=== PATIENT | male | born 1955 | race Caucasian/White ===

== ENCOUNTER 2020-12-18 14:20 | Emergency (ER) | payer MEDICARE, SELFPAY ==
--- NOTE | 2020-12-18 14:19 | ECG_ITS ---
APPROVED REPORT Exam: Resting ECG HR:54 bpm ECG Measurements Heart Rate 54 AXES IL 146 P 53 QRSd 90 QRS 18 QT 460 T 75 QTc 436 Conclusion Sinus bradycardia Low voltage QRS Borderline ECG Electronically signed by : Luis Buckner MD 12/20/2020 18:09:29
[2020-12-18 14:20] VITALS: BP 98/70; PULSE 55; RESP 18; O2SAT 98; BMI 29.9
--- NOTE | 2020-12-18 14:52 | [facility].EDGENADL ---
ED Disposition Clinical Impression: Left against medical advice, Symptomatic bradycardia Syncope Qualifiers: Syncope type: unspecified Qualified Code(s): R55 - Syncope and collapse Disposition: Left Against Medical Advice Condition on Discharge: Good Instructions: DI for Seizure Disorder -- Adult, DI for Seizure (Not Epilepsy/Seizure Disorder), DI for Seizure Disorder -- Child Referrals: Provider,Referral, [Primary Care Provider] - - Critical Care Critical Care Time: No Attestation: On 12/18/20, the high probability of a clinically significant, sudden or life threatening deterioration of the following system(s) required my full and direct attention, intervention and personal management. The time I documented below is in addition to time spent performing reported procedures but includes the following listed in this critical care notation. Medical Decision Making - Medical Records Medical records reviewed: Yes: I reviewed the patient's medical records. - Uriah Inquiry Pt receiving controlled substance: No Vital Signs: 12/18/20 14:20 12/18/20 15:18 Temperature 97.6 F Pulse Rate 55 L Pulse Rate [Left Radial] 55 L Respiratory Rate 18 18 Blood Pressure 98/70 L Blood Pressure [Right Arm] 98/70 L Blood Pressure Mean [Right Arm] 79 Blood Pressure Source Automatic Cuff Blood Pressure Source [Right Arm] Automatic Cuff Blood Pressure Position Sitting Blood Pressure Position [Right Arm] Sitting 02 Sat by Pulse Oximetry 98 Oxygen Delivery Method Room Air Room Air - Lab Data Lab Results 12/18/20 14:27: WBC 8.3, RBC 4.72, Hgb 14.7, Hct 44.7, MCV 94.7 H, MCH 31.2, MCHC 32.9, RDW 13.3, Plt Count 281, MPV 7.8, Neut % (Auto) 53.9, Lymph % (Auto) 36.6, [place] % (Auto) 6.6, Eos % (Auto) 2.4, Baso % (Auto) 0.5, Neut # (Auto) 4.5, Lymph # (Auto) 3.0, [place] # (Auto) 0.5, Eos # (Auto) 0.2, Baso # (Auto) 0.0 12/18/20 14:27: D-Dimer 0.47 12/18/20 14:27: Sodium 135 L, Potassium 4.1, Chloride 101, Carbon Dioxide 23, Anion Gap 15.1 H, BUN 19, Creatinine 1.70 H, Estimated Creat Clear 67, Estimated GFR 41 L, Est GFR ( Amer) 49 L, Glucose 117 H, Calcium 8.8, Total Bilirubin 0.5, AST 37, ALT 42, Alkaline Phosphatase 60, Troponin I < 0.01, NT-Pro-B Natriuret Pep 242 H, Total Protein 7.0, Albumin 4.0, Globulin 3.0, Albumin/Globulin Ratio 1.3 12/18/20 14:27: Lactate 2.8 H Result diagrams: 12/18/20 14:27 12/18/20 14:27 Orders (Tests/Meds): ED MEDICATIONS Discontinued Medications Generic Name Dose Route Start Last Admin Trade Name Freq PRN Reason Stop Dose Admin Aspirin 324 mg 12/18/20 14:50 Aspirin 81mg Chewable Tablet PO 12/18/20 14:51 ONCE ONE Nitroglycerin 0.4 mg 12/18/20 14:50 Nitroglycerin 0.4mg Sl Tablet SL 12/19/20 14:50 [id number] PRN Chest Pain Medical Decision Narrative: Patient is well-appearing 65-year-old male presents the ED today with bradycardia and a syncopal episode possible seizure-like activity. Differential diagnosis includes seizure, drug intoxication, alcohol intoxication, symptomatic bradycardia, ACS. Will further evaluate with CBC CMP troponin D-dimer lactic acid chest x-ray. Patient is well-appearing on my initial evaluation, in no acute distress bradycardic but with good color good peripheral pulse and normal blood pressure. Patient episode certainly could be consistent with seizure as patient had mild amount of shaking of the upper extremities, and urinated on himself, however this could also be syncope from symptomatic bradycardia. Will obtain our lab work-up and observe in the emergency department for further symptomatic worsening. Alcohol intoxication in combination with drugs could cause the symptoms, however want to rule out cardiac etiology. EKG obtained shortly after arrival, sinus bradycardia with no evidence of ischemia and no evidence of heart block. Evaluation, patient came to the charting station stating that he wished to be discharged
[2020-12-18 14:57] LABS: Basophils % 0.5 % (0.1-2.0); Eosinophils # 0.2 K/mm3 (0.0-0.4); Eosinophils % 2.4 % (0.1-12.0); Hematocrit 44.7 % (42.0-52.0); Hemoglobin 14.7 g/dL (14.1-18.0); Lymphocytes % 36.6 % (10-50); Mean Corpuscular HGB Conc 32.9 g/dL (31.8-35.4); Mean Corpuscular Hemoglobin 31.2 pg (27.0-31.2); Mean Corpuscular Volume 94.7 fl (80-94); Mean Platelet Volume 7.8 fl (7.4-10.4); Monocytes # 0.5 K/mm3 (0.1-1.0); Monocytes % 6.6 % (1.7-9.3); Neutrophils # 4.5 K/mm3 (1.8-7.8); Neutrophils % 53.9 % (37.0-80.0); Platelet Count 281 K/mm3 (142-424); Red Blood Count 4.72 M/mm3 (4.60-6.20); Red Cell Distribution Width 13.3 % (11.5-17.5); White Blood Count 8.3 K/mm3 (4.8-10.8)
[2020-12-18 14:58] LABS: Chloride 101 mmol/L (98-107); Sodium 135 mmol/L (136-145)
[2020-12-18 14:59] LABS: Potassium 4.1 mmoL/L (3.5-5.1)
[2020-12-18 15:01] LABS: Alanine Aminotransferase 42 U/L (12-78); Albumin/Globulin Ratio 1.3 (1.1-1.8); Alkaline Phosphatase 60 U/L (38-126); Anion Gap 15.1 mEq/L (5-15); Aspartate Amino Transferase 37 U/L (17-59); Bilirubin,Total 0.5 mg/dl (0.2-1.3); Blood Urea Nitrogen 19 mg/dl (9-20); Calcium 8.8 mg/dl (8.4-10.2); Carbon Dioxide 23 mmol/L (22.0-30.0); Creatinine Clearance Estimated 67 mL/min (50-200); Estimated Glomerular Filt Rate 41 ml/min (>60); GFR (African American) 49 ML/MIN (>60); Glucose 117 mg/dl (74-100)
[2020-12-18 15:06] LABS: D-Dimer 0.47 ug/mL (0.0-0.5); Lactic Acid 2.8 mmol/L (0.7-2.1)
[2020-12-18 15:12] LABS: NT Pro Brain Natriuretic Pep. 242 pg/mL (0-125)
[2020-12-18 15:16] LABS: Troponin I < 0.01 ng/ml (0.00-0.034)
--- NOTE | 2020-12-18 15:17 | PC.NURSE ---
Pt stating he feels fine and wants to leave against medical advice
[2020-12-18 15:18] VITALS: BP 98/70; PULSE 55; RESP 18; TEMP 36.4; O2SAT 98
== END 2020-12-18 15:19 | disposition left against medical advice (07) ==
PROVIDERS: Emergency Provider Student in an Organized Health Care Education/Training Program
DX: R55 Syncope and collapse (principal); R00.1 Bradycardia, unspecified; R56.9 Unspecified convulsions; F10.10 Alcohol abuse, uncomplicated; F12.10 Cannabis abuse, uncomplicated; R06.09 Other forms of dyspnea
CPT/HCPCS: 80053; 83605; 83880; 84484; 85025; 85378; 93005; 99282

== ENCOUNTER → 2021-04-20 11:34 | Outpatient (CLI) | payer MEDICARE, SELFPAY | PROVIDERS: Visit Provider Nurse Practitioner | DX: U07.1 COVID-19 (principal) | CPT/HCPCS: C9803; U0003; U0005 ==

== ENCOUNTER 2022-04-07 10:30 | Emergency (ER) | payer MEDICARE, SELFPAY ==
[2022-04-07 11:27] VITALS: BP 153/95; PULSE 60; RESP 16; TEMP 36.7; O2SAT 96; BMI 28.7
--- NOTE | 2022-04-07 11:43 | PC.NURSE ---
pts dressing changed. packing removed, replaced with wet 1/4 in. iodofoam. non stick dressing applied and tegaderm placed on top of it.
[2022-04-07 11:48] VITALS: BP 153/95; PULSE 60; RESP 16; TEMP 36.7
--- NOTE | 2022-04-07 11:51 | PC.NURSE ---
instructed by vehicle sales professional to go ahead and change dressing, due to pt being here.
== END 2022-04-07 12:57 | disposition home or self-care (01) ==
PROVIDERS: Emergency Provider Nurse Practitioner; PCP Internal Medicine Adolescent Medicine
DX: Z48.01 Encounter for change or removal of surgical wound dressing (principal)
CPT/HCPCS: 99211; G0463

== ENCOUNTER 2023-07-24 16:21 | Emergency (ER) | payer MEDICARE, SELFPAY ==
[2023-07-24 16:22] VITALS: BP 126/64; PULSE 72; RESP 14; TEMP 36.7; O2SAT 94; BMI 28.5
--- NOTE | 2023-07-24 16:22 | [facility].EDGENADL ---
Discharge Plan Disposition Patient Disposition: Home, Self-Care Condition: Good Referrals Follow up/Referrals: Provider,Referral, [Primary Care Provider] - See instructions Clinical Impressions Clinical Impression: Alcohol intoxication Discharge ED Provider: Julius Case Adult HPI General Chief complaint: Alcohol Stated complaint: ETOH Time Seen by Provider: 07/24/23 16:22 History of Present Illness HPI narrative: Patient presents with chief complaint of intoxication following drinking approximately 1/5 of tequila earlier today. He states he drinks daily and has 4-5 beers a day. He denies any other substance use. He was reported to have hypoglycemia and root that was treated with p.o. glucose. He states he had possible loss of consciousness but denies any pain at this time. He denies any headache, numbness, tingling, back pain, chest pain, abdominal pain. He denies any blood thinner usage. No other complaints at this time. Please note that above description of symptoms, in this electronic medical record under categorization of recalled from ER triage doctor by RN are reflective of an initial nursing assessment, however, is not reflective of my full history and physical exam that was personally taken and clarified. Consequentially, this preceding description of symptoms, which may include the patient's categorized chief complaint in the EMR, do not reflect my personal clinical impression, and the ultimate description of history of present illness and patient stated complaints should be deferred to this section of the note. Unless stated otherwise or congruent with this section of the note, additional signs, symptoms, or incongruence should be interpreted as inaccurate with my clinical impression. Related Data Allergies Allergy/AdvReac Type Severity Reaction Status Date / Time Aspirin Allergy Unknown Uncoded 03/27/17 14:39 From Tolmetin Sodium Allergy Unknown Uncoded 03/27/17 14:39 [facility] Disclaimer: The information contained in this section may have been updated after the patient was seen, as this information can be updated by other users. Social History Smoking Status: Unknown if ever smoked alcohol intake: current current occupational status: other Travel in the last 8 weeks: None ROS Obtained: Yes Systems reviewed as appropriate & no additional complaints except as documented As per HPI Physical Exam General General appearance: alert and appears intoxicated Head Head exam: atraumatic, normocephalic and other (No evidence of trauma above clavicles, no midline cervical spinal tenderness to palpation, pupils equal and reactive) Eye Eye exam: Present normal appearance Neck Neck exam: Present normal inspection Chest Chest inspection: Present normal inspection and symmetric chest wall rise Respiratory Respiratory exam: Present normal lung sounds bilaterally; Absent respiratory distress Cardiovascular Cardiovascular exam: Present regular rate and normal rhythm Abdominal Exam Abdominal exam: Present soft Neurological Exam Neurological exam: Present alert and oriented X3 Psychiatric Psychiatric exam: Present normal affect and normal mood Skin Skin exam: Present warm and dry Medical Decision Making Medical Records Medical records reviewed: Yes I reviewed the patient's medical records. Uriah Inquiry Pt receiving controlled substance: No Vital Signs: 07/24/23 16:22 07/24/23 17:00 07/24/23 17:52 Temperature 98.0 F 98.1 F Temperature Source Oral Pulse Rate 69 85 Pulse Rate [Radial] 72 Respiratory Rate 14 15 20 Blood Pressure 113/69 137/78 Blood Pressure [Right Arm] 126/64 Blood Pressure Mean [Right Arm] 84 Blood Pressure Source [Right Arm] Automatic Cuff Blood Pressure Position [Right Arm] Sitting 02 Sat by Pulse Oximetry 94 L 93 L Oxygen Delivery Method Room Air Room Air Room Air Lab Data Lab Results 07/24/23 16:15: WBC 13.0 H, RBC 5.02, Hgb 15.1, Hct 45.8, MCV 91.3, MCH 30.1, MCHC 32.9, RDW 13.5, Plt Count 271, MPV 8.1, Neut % (Auto) 63.1, Lymph % (Auto) 30.9, [place] % (Auto) 4.2, Eos % (Auto) 1.0, Baso % (Auto) 0.8, Neut # (Auto) 8.2 H, Lymph # (Auto) 4.0, [place] # (Auto) 0.6, Eos # (Auto) 0.1, Baso # (Auto) 0.1, Sodium 140, Potassium 4.5, Chloride 107, Carbon Dioxide 18 L, Anion Gap 19.5 H, BUN 35 H, Creatinine 2.60 H, Estimated Creat Clear 36, Estimated GFR 25 L, Est GFR ( Amer) 30 L, Glucose 77, Calcium 9.0, Total Bilirubin 0.6, AST 36, ALT 27, Alkaline Phosphatase 59, Total Protein 7.6, Albumin 4.5, Globulin 3.1, Albumin/Globulin Ratio 1.5, Plasma/Serum Alcohol 335 H 07/24/23 16:15 07/24/23 16:15 Orders (Tests/Meds): ORDERS Category Date Time Status Blood alcohol [Ethyl Alcohol] Stat Lab 07/24/23 16:15 Completed Complete Blood Count Auto Diff Stat Lab 07/24/23 16:15 Completed Comprehensive Metabolic Panel Stat Lab 07/24/23 16:15 Completed Medical Decision Narrative: Patient with history and exam per above presenting for evaluation of reported alcohol intoxication Diagnoses considered include intoxication, no clinical evidence of Co ingestion, suicidal ideation, homicidal ideation, psychosis, trauma ED workup and treatment included: Nursing ordered ethyl alcohol level, CBC, CMP Labs were independently interpreted by me, significant for ethyl alcohol level 335 My clinical impression at this time is most consistent with acute alcohol intoxication. Patient was observed in the emergency department, on serial examinations, alert, interactive, family member later presents to bedside, willing to observe patient at home, patient is amenable to this plan, is deemed clinically stable for discharge with appropriate supervision. I discussed my clinical impression with patient and answered all questions. At this time, the evidence for any other entities in the differential is insufficient to warrant any further testing or ED observation. This was explained to the patient and family member. The patient and family member were advised that persistent or worsening symptoms require further evaluation. Critical Care Critical Care Time Critical Care Time: No
--- NOTE | 2023-07-24 16:26 | PC.NURSE ---
DR WALLACE AT BEDSIDE
[2023-07-24 17:00] VITALS: BP 113/69; PULSE 69; RESP 15; O2SAT 93
--- NOTE | 2023-07-24 17:15 | PC.NURSE ---
Pt provided with dinner tray
--- NOTE | 2023-07-24 17:33 | PC.NURSE ---
Pt pulled out IV
[2023-07-24 17:38] LABS: Basophils # 0.1 K/mm3 (0-0.2); Basophils % 0.8 % (0.1-2.0); Eosinophils # 0.1 K/mm3 (0.0-0.4); Hematocrit 45.8 % (42.0-52.0); Hemoglobin 15.1 g/dL (14.1-18.0); Lymphocytes % 30.9 % (10-50); Mean Corpuscular HGB Conc 32.9 g/dL (31.8-35.4); Mean Corpuscular Hemoglobin 30.1 pg (27.0-31.2); Mean Corpuscular Volume 91.3 fl (80-94); Mean Platelet Volume 8.1 fl (7.4-10.4); Monocytes # 0.6 K/mm3 (0.1-1.0); Monocytes % 4.2 % (1.7-9.3); Neutrophils # 8.2 K/mm3 (1.8-7.8); Neutrophils % 63.1 % (37.0-80.0); Platelet Count 271 K/mm3 (142-424); Red Blood Count 5.02 M/mm3 (4.60-6.20); Red Cell Distribution Width 13.5 % (11.5-17.5)
--- NOTE | 2023-07-24 17:45 | PC.NURSE ---
SISTER AT BEDSIDE
[2023-07-24 17:49] LABS: Alanine Aminotransferase 27 U/L (12-78); Albumin Level 4.5 g/dl (3.5-5.0); Albumin/Globulin Ratio 1.5 (1.1-1.8); Alkaline Phosphatase 59 U/L (38-126); Anion Gap 19.5 mEq/L (5-15); Aspartate Amino Transferase 36 U/L (17-59); Bilirubin,Total 0.6 mg/dl (0.2-1.3); Blood Urea Nitrogen 35 mg/dl (9-20); Carbon Dioxide 18 mmol/L (22.0-30.0); Chloride 107 mmol/L (98-107); Creatinine Clearance Estimated 36 mL/min (50-200); Estimated Glomerular Filt Rate 25 ml/min (>60); GFR (African American) 30 ML/MIN (>60); Globulin 3.1 g/dL (1.3-3.2); Glucose 77 mg/dl (74-100); Potassium 4.5 mmoL/L (3.5-5.1); Sodium 140 mmol/L (136-145); Total Protein,Serum 7.6 g/dl (6.3-8.2)
--- NOTE | 2023-07-24 17:49 | PC.NURSE ---
DR WALLACE AT BEDSIDE
[2023-07-24 17:52] VITALS: BP 137/78; PULSE 85; RESP 20; TEMP 36.7; O2SAT 98
[2023-07-24 17:58] LABS: Ethyl Alcohol 335 mg/dl (0-10)
== END 2023-07-24 17:54 | disposition home or self-care (01) ==
PROVIDERS: Emergency Provider Emergency Medicine
DX: F10.129 Alcohol abuse with intoxication, unspecified (principal); Y90.8 Blood alcohol level of 240 mg/100 ml or more
CPT/HCPCS: 80053; 85025; 99283